=== PATIENT | male | born 1985 ===

== ENCOUNTER 2018-06-22 12:56 | Inpatient (IN) | payer MEDICAID, OTHER ==
--- NOTE | 2018-06-22 13:52 | C.PDOC ---
History Of Present Illness 32 y/o M c no PMHx p/w dyspnea x 2 weeks, worse over last 2 days. Reports associated chest tightness and a pleuritic pain in the L lower back. Denies fever, chills, nausea, vomiting, hemoptysis, injury/trauma, recent surgery or travel, leg swelling. Time Seen by Provider: 06/22/18 13:36 Chief Complaint (Nursing): Shortness Of Breath Past Medical History Vital Signs: Last Vital Signs Temp 97.9 F 06/22/18 13:12 Pulse 130 H 06/22/18 13:12 Resp 20 06/22/18 13:12 BP 149/96 H 06/22/18 13:12 Pulse Ox 95 06/22/18 13:12 Family History: States: No Known Family Hx - Social History Hx Alcohol Use: No Hx Substance Use: No Review Of Systems Except As Marked, All Systems Reviewed And Found Negative. Constitutional: Negative for: Fever Gastrointestinal: Negative for: Vomiting Physical Exam - Physical Exam Additional Physical Exam Comments: Constitutional: No acute distress. Head: Normocephalic. Atraumatic. Eyes: PERRL. ENT: Moist mucous membranes. Neck: Supple. Cardiovascular: Tachycardic rate. Radial pulse 2+ bilaterally. Chest: No tenderness. Respiratory: Hypoxic to 93%. Tachypneic. GI: Soft. Nontender. Nondistended. Back: No CVA tenderness. Musculoskeletal: No tenderness or swelling of extremities. Skin: No rash. Neurologic: Alert, no focal deficit. ED Course And Treatment - Laboratory Results Result Diagrams: 06/22/18 14:23 06/22/18 14:23 O2 Sat by Pulse Oximetry: 95 Critical Care Time - Critical Care Note Total Time (in mins): 45 Documented critical care: time excludes all time spent performing seperately billable procedures. Medical Decision Making Medical Decision Making: EKG Sinus rhythm, 126 bpm, no ST elevations. FINDINGS: PULMONARY ARTERIES: Extensive multifocal pulmonary emboli are identified beginning at the main left and right pulmonary arteries extending into every lobe with near occlusive thro mbosis at the secondary branches of the main right and left pulmonary arteries and lesser volumes in the bilateral lower lobe and left upper lobe pulmonary arteries. The right upper lobe pulmonary arteries appear rather severely affected. No embolus within the main pulmonary artery. The main right pulmonary artery measures 3.2 cm greatest transverse caliber, mildly dilated. In the heart, the right lateral ventricle appears dilated with straightening of the interventricular septum, suspicious for right ventricular strain. AORTA: No acute findings. No thoracic aortic aneurysm. No aortic atherosclerotic calcification or mural plaque present. LUNGS: The right lung is unremarkable. No right pleural findings. Trace of pleural effusion with limited airspace disease at the left base potentially related to compressive atelectasis. HEART: Unremarkable. No cardiomegaly. No significant pericardial effusion. LYMPH NODES: No lymphadenopathy. BONES, CHEST WALL: Unremarkable. No fracture or destructive lesion OTHER FINDINGS: Unremarkable. IMPRESSION: Widespread multifocal pulmonary emboli with a left upper lobe least affected. The main pulmonary artery is mildly dilated with CT evidence of right ventricular strain. Please see discussion above. Mild left pleural effusion and compression atelectasis left lower lobe. Findings discussed with Dr. Shepherd with written down and read back verification 06/22/2018, 3:[address] Justice accepts patient to ICU, states will discuss with patient concerning more thrombolysis. Dr. Guerrier accepts patient to hospitalist service. Disposition Discussed With : Amalia Justice Doctor Will See Patient In The: Hospital - Disposition Disposition: HOSPITALIZED Disposition Time: 15:55 Condition: CRITICAL - Clinical Impression Clinical Impression: Pulmonary embolism, bilateral
[2018-06-22] MEDS ORDERED: Iodixanol 320 mg/ml 150 ml Bottle IV ONE (14:09)
[2018-06-22 14:30] LABS: BASO # 0.1 K/uL (0.0-0.2); BASO % 0.4 % (0.0-2.0); EOS % 0.2 % (0.0-4.0); LYMPH # 3.4 K/uL (1.0-4.3); LYMPH % 20.3 % (20.0-40.0); MEAN CELL VOLUME 85.7 fL (80.0-94.0); MEAN CORPUSCULAR HEMOGLOBIN 28.9 pg (27.0-31.0); MEAN CORPUSCULAR HGB CONC 33.7 g/dL (33.0-37.0); MEAN PLATELET VOLUME 8.8 fL (7.2-11.7); MONO # 1.3 K/uL (0.0-0.8); MONO % 7.6 % (0.0-10.0); NEUT # 12.1 K/uL (1.8-7.0); NEUT % 71.5 % (50.0-75.0); NRBC % 0.2 % (0.0-2.0); RBC 5.54 Mil/uL (4.40-5.90); RED CELL DISTRIBUTION WIDTH 12.6 % (11.5-14.5)
[2018-06-22 14:45] LABS: INR 1.2; PROTHROMBIN TIME 13.3 SECONDS (9.7-12.2)
[2018-06-22 14:48] LABS: ALB/GLOB RATIO 1.1 (1.0-2.1); ALBUMIN 4.6 g/dL (3.5-5.0); ALT/SGPT 11 U/L (21-72); AST/SGOT 19 U/L (17-59); BLOOD UREA NITROGEN 20 mg/dL (9-20); CALCIUM 9.5 mg/dl (8.6-10.4); GFR NON-AFRICAN AMERICAN > 60
[2018-06-22 15:00] LABS: B-TYPE NATRIURETIC PEPTIDE 4230 pg/mL (0-450)
--- NOTE | 2018-06-22 15:58 | CT ---
Date of service: 06/22/2018 PROCEDURE: CT Chest with contrast (Pulmonary Angiogram) HISTORY: dyspnea, tachycardia COMPARISON: None available. TECHNIQUE: Axial computed tomography images were obtained of the chest in the pulmonary arterial phase of enhancement. Coronal and sagittal reformatted images were created and reviewed. Intravenous contrast dose: Visipaque 320, 100 cc Radiation dose: Total exam DLP = 620.72 mGy-cm. This CT exam was performed using one or more of the following dose reduction techniques: Automated exposure control, adjustment of the mA and/or kV according to patient size, and/or use of iterative reconstruction technique. FINDINGS: PULMONARY ARTERIES: Extensive multifocal pulmonary emboli are identified beginning at the main left and right pulmonary arteries extending into every lobe with near occlusive thrombosis at the secondary branches of the main right and left pulmonary arteries and lesser volumes in the bilateral lower lobe and left upper lobe pulmonary arteries. The right upper lobe pulmonary arteries appear rather severely affected. No embolus within the main pulmonary artery. The main right pulmonary artery measures 3.2 cm greatest transverse caliber, mildly dilated. In the heart, the right lateral ventricle appears dilated with straightening of the interventricular septum, suspicious for right ventricular strain. AORTA: No acute findings. No thoracic aortic aneurysm. No aortic atherosclerotic calcification or mural plaque present. LUNGS: The right lung is unremarkable. No right pleural findings. Trace of pleural effusion with limited airspace disease at the left base potentially related to compressive atelectasis. HEART: Unremarkable. No cardiomegaly. No significant pericardial effusion. LYMPH NODES: No lymphadenopathy. BONES, CHEST WALL: Unremarkable. No fracture or destructive lesion OTHER FINDINGS: Unremarkable. IMPRESSION: Widespread multifocal pulmonary emboli with a left upper lobe least affected. The main pulmonary artery is mildly dilated with CT evidence of right ventricular strain. Please see discussion above. Mild left pleural effusion and compression atelectasis left lower lobe. Findings discussed with Dr. Shepherd with written down and read back verification 06/22/2018, 3:43 p.m..
[2018-06-22] MEDS: Heparin25000 units/250ml 1/2NS 25,000 UNITS/250 ML BAG IV PRN (16:00)
--- NOTE | 2018-06-22 17:21 | CP.PCM.HP ---
History of Present Illness - History of Present Illness History of Present Illness: This is a 32 year old male who reports having two weeks of progressively worsening shortness of breath, chest pain, and palpitations. He reports that he had been tolerating this until about 2 days ago when it became considerably worse and now could no longer bear it any longer and came into the hospital. To make a long story short he had a CTA showing extensive multifocal pulmonary embolism in both left and right in every lobe. The right upper lobe arteries appear severely affected. The CTA also reported that the right ventricle appears very dilated and suspicious for right ventricular strain. There are borderline elevated troponins and the 12 lead shows sinus tachycardia in the 130s with On vital signs he was sinus tachycardia in the 120s to 130. BP was in the 130s Patient denied any recent travel, denied surgeries to the lower extremity, denied smoking, he walks alot and is not sedentary he says He also denies any family history of blood clotting disorders + He reported he thinks he injured his right knee about 1 month ago but did not have pain for more than one day, denied leg sweling + Headache off and on Denies abominal pain, denies bowel movment problems, denies urinary problems Allergies: NKDA Surgeries: Left shoulder surgery in childhood Medications: None Past Medical History: He reports none Social: He denies smoking, denies drugs, denies alcohol. Family History: Dad has HTN. Mother present at bedside and says she is well. Present on Admission - Present on Admission Any Indicators Present on Admission: Yes History of DVT/PE: Yes History of Uncontrolled Diabetes: No Urinary Catheter: No Decubitus Ulcer Present: No Review of Systems - Cardiovascular Cardiovascular: Chest Pain, Chest Pain at Rest, Dyspnea on Exertion, Rapid Heart Rate - Respiratory Respiratory: Cough - Gastrointestinal Gastrointestinal: absent: Abdominal Pain, Belching Past Patient History - Past Social History Smoking Status: Never Smoked - PSYCHIATRIC Hx Substance Use: No - SURGICAL HISTORY Hx Surgeries: No - ANESTHESIA Hx Anesthesia: No Meds Allergies/Adverse Reactions: Allergies Allergy/AdvReac Type Severity Reaction Status Date / Time No Known Allergies Allergy Unverified 06/22/18 13:15 Physical Exam - Constitutional Appears: In Acute Distress - Head Exam Head Exam: NORMAL INSPECTION - Eye Exam Eye Exam: EOMI, Normal appearance - ENT Exam ENT Exam: Mucous Membranes Moist - Respiratory Exam Respiratory Exam: Clear to Auscultation Bilateral, NORMAL BREATHING PATTERN - Cardiovascular Exam Cardiovascular Exam: Tachycardia. absent: Irregular Rhythm, Systolic Murmur - Neurological Exam Neurological exam: Alert, CN II-XII Intact - Skin Skin Exam: Dry, Normal Color, Warm Results - Vital Signs Recent Vital Signs: Last Vital Signs Temp 98.3 F 06/22/18 16:53 Pulse 131 H 06/22/18 16:53 Resp 26 H 06/22/18 16:53 BP 136/88 06/22/18 16:53 Pulse Ox 97 06/22/18 16:53 - Labs Result Diagrams: 06/22/18 14:23 06/22/18 14:23 Labs: Laboratory Results - last 24 hr 06/22/18 06/22/18 06/22/18 14:23 14:23 14:23 WBC 17.0 H RBC 5.54 Hgb 16.0 Hct 47.5 MCV 85.7 MCH 28.9 MCHC 33.7 RDW 12.6 Plt Count 370 MPV 8.8 Neut % (Auto) 71.5 Lymph % (Auto) 20.3 [place] % (Auto) 7.6 Eos % (Auto) 0.2 Baso % (Auto) 0.4 Neut # (Auto) 12.1 H Lymph # (Auto) 3.4 [place] # (Auto) 1.3 H Eos # (Auto) 0.0 Baso # (Auto) 0.1 PT 13.3 H INR 1.2 APTT 33 D-Dimer, Quantitative 3831 H Sodium 139 Potassium 3.8 Chloride 100 Carbon Dioxide 27 Anion Gap 16 BUN 20 Creatinine 1.1 Est GFR ( Amer) > 60 Est GFR (Non-Af Amer) > 60 Random Glucose 133 H Calcium 9.5 Total Bilirubin 0.6 AST 19 ALT 11 L Alkaline Phosphatase 122 Total Creatine Kinase 71 CK-MB (Mass) 2.80 Troponin I 0.3690 H* NT-Pro-B Natriuret Pep 4230 H Total Protein 8.7 H Albumin 4.6 Globulin 4.2 H Albumin/Globulin Ratio 1.1 - EKG Data EKG Interpreted by: Myself Rate: Tachycardia - Impressions Impression: The EKG shows tachycardia, sinus and has T wave inversions Assessment & Plan (1) Pulmonary embolism, bilateral Status: Acute Priority: High Comment: 06/22/2018: Patient will be moved to ICU, I spoke with ICU physician, Cardiology and also IR. The patient has recived a heparin bolus in the ER and also will be on a heparin ggt. The patient has borderline positive troponins noted and will have more tropnins checked. There will be an echo to look at heart strain. He will be on supplemental nasal cannula tonight as his saturation is 93% on room air. Per discussion with IR they asked he be given TPA tonight and then the plan is for an EKOS cathter lysis. at somepoint tommorow. Checking also lower extremity for DVT, however he denies long travel and any swelling. He may need a large anticoagulation work up if a reason is not readily found.
[2018-06-22] MEDS: Sodium Chloride 0.9% 1,000 ML IV SCH (18:41)
--- NOTE | 2018-06-22 18:58 | CP.PCM.CON ---
History of Present Illness - History of Present Illness History of Present Illness: Chief complaints: Shortness of breath HPI: 32-year-old male with no significant past medical history came to the emergency room today with symptoms of worsening shortness of breath. 2 and a weeks ago he was having, he started noticing some shortness of breath with minimal exertion. He was serving difficult time in walking, also climbing stairs was even more harder. Initially he thought related to some lung infections. He did not go to any exercise recently. 6 weeks ago he had some sprain of the left knee, but did not seek any medical attention, following that he started noticing some more pain. But he did not notice any swelling in the legs. Over the course of 2 weeks he started more short of breath. But 3 days he was not able to lie flat he was feeling some chest tightness, he was having some difficult time even sleep. Last night he could not sleep, he felt chest tightness, this morning he decided to come to the emergency room because of the symptoms not getting better. He did not have any passing out. No syncope. He did not have any chest pain. But the exertional dyspnea is significantly present In the past the patient did not have any travel. No history of major operations no other major history of injuries or head injuries noted in the past. No known drug allergy History of left shoulder surgery in the past Not any medications Non-smoker Nonalcoholic. Family history significant for hypertension Patient does not use any drugs Unemployed currently Review of system: Patient is having no headache, no visual symptoms, complaining of chest tightness and shortness of breath noted. No chest pain. Denies any leg swelling On examination: Vital signs noted. Sinus tachycardia noted. Blood pressure stable saturation is normal Chest good air entry regular heart sounds nontender abdomen no pedal edema Labs reviewed Patient labs showing evidence of elevated d-dimer Chest x-ray negative. PET patient had a CT scan of the chest showing evidence of major pulmonary embolism. Pulmonary embolism noted in the main pulmonary arteries. Bilaterally also noted. D-dimer was slightly elevated. EKG showing sinus tach Assessment and recommendation: 32-year-old male with no past medical history came to the emergency room with acute pulmonary embolism. Patient possibly has a submassive PE at this time. But hemodynamically he is stable. I discussed with the leather goods i assembler. Interventional radiologist. Possible intravenous catheter directed thrombolysis in the morning. I discussed with the patient regarding the intravenous IV thrombolysis, but the benefits and the risk was analyzed with the patient about systemic thrombolysis, as the patient is clinically stable at this time wait for thrombolysis through the catheter. Meanwhile we will continue the intravenous heparin drip. Close monitoring. If there is any slight increasing in the vital signs at this up saturation decompensation, patient definitely will need TPA. But his symptoms are therefore more than 2 weeks now. Underlying DVT cannot be ruled out. Underlying hypercoagulable state cannot be ruled out. We will closely monitor the patient. We will keep the patient n.p.o. and will follow the patient in the ICU Past Patient History - Past Social History Smoking Status: Never Smoked - MUSCULOSKELETAL/RHEUMATOLOGICAL Hx Falls: No - PSYCHIATRIC Hx Substance Use: No - SURGICAL HISTORY Hx Surgeries: No - ANESTHESIA Hx Anesthesia: No Meds Allergies/Adverse Reactions: Allergies Allergy/AdvReac Type Severity Reaction Status Date / Time No Known Allergies Allergy Unverified 06/22/18 13:15 - Medications Medications: Current Medications Aspirin (Aspirin Chewable) 81 mg PO DAILY [facility] Last Admin: 06/22/18 16:42 Dose: 81 mg Heparin Sodium/Sodium Chloride (Heparin 26209 Units/250ml 1/2 Normal Saline) 25,000 units in 250 mls @ 20.248 mls/hr IV .[id number] PRN; Protocol PRN Reason: ADJUST RATE PER PROTOCOL Last Admin: 06/22/18 16:00 Dose: 20.248 mls/hr Sodium Chloride (Sodium Chloride 0.9%) 1,000 mls @ 40 mls/hr IV .Q24H [facility] Last Admin: 06/22/18 18:41 Dose: 40 mls/hr Pantoprazole Sodium (Protonix Ec Tab) 20 mg PO DAILY [facility] Rosuvastatin Calcium (Crestor) 5 mg PO HS [facility] Results - Vital Signs Recent Vital Signs: Last Vital Signs Temp 98.3 F 06/22/18 16:53 Pulse 125 H 06/22/18 17:37 Resp 26 H 06/22/18 16:53 BP 136/88 06/22/18 16:53 Pulse Ox 97 06/22/18 16:53 - Labs Result Diagrams: 06/22/18 14:23 06/22/18 14:23 Labs: Laboratory Results - last 24 hr 06/22/18 06/22/18 06/22/18 14:23 14:23 14:23 WBC 17.0 H RBC 5.54 Hgb 16.0 Hct 47.5 MCV 85.7 MCH 28.9 MCHC 33.7 RDW 12.6 Plt Count 370 MPV 8.8 Neut % (Auto) 71.5 Lymph % (Auto) 20.3 [place] % (Auto) 7.6 Eos % (Auto) 0.2 Baso % (Auto) 0.4 Neut # (Auto) 12.1 H Lymph # (Auto) 3.4 [place] # (Auto) 1.3 H Eos # (Auto) 0.0 Baso # (Auto) 0.1 PT 13.3 H INR 1.2 APTT 33 D-Dimer, Quantitative 3831 H Sodium 139 Potassium 3.8 Chloride 100 Carbon Dioxide 27 Anion Gap 16 BUN 20 Creatinine 1.1 Est GFR ( Amer) > 60 Est GFR (Non-Af Amer) > 60 Random Glucose 133 H Calcium 9.5 Total Bilirubin 0.6 AST 19 ALT 11 L Alkaline Phosphatase 122 Total Creatine Kinase 71 CK-MB (Mass) 2.80 Troponin I 0.3690 H* NT-Pro-B Natriuret Pep 4230 H Total Protein 8.7 H Albumin 4.6 Globulin 4.2 H Albumin/Globulin Ratio 1.1
[2018-06-22 22:02] LABS: CK-MB 1.89 ng/mL (0.0-3.38); TROPONIN I 0.274 ng/mL (0.00-0.120)
[2018-06-23 04:39] LABS: BASO # 0.1 K/uL (0.0-0.2); BASO % 0.7 % (0.0-2.0); EOS % 0.3 % (0.0-4.0); HEMOGLOBIN 14.7 g/dL (12.0-18.0); LYMPH # 2.9 K/uL (1.0-4.3); LYMPH % 19.7 % (20.0-40.0); MEAN CELL VOLUME 84.8 fL (80.0-94.0); MEAN CORPUSCULAR HEMOGLOBIN 28.8 pg (27.0-31.0); MEAN PLATELET VOLUME 8.6 fL (7.2-11.7); MONO # 1.1 K/uL (0.0-0.8); MONO % 7.7 % (0.0-10.0); NEUT # 10.6 K/uL (1.8-7.0); NEUT % 71.6 % (50.0-75.0); RBC 5.11 Mil/uL (4.40-5.90); RED CELL DISTRIBUTION WIDTH 12.6 % (11.5-14.5); WHITE BLOOD COUNT 14.8 K/uL (4.8-10.8)
[2018-06-23 04:47] LABS: INR 1.2; PROTHROMBIN TIME 13.3 SECONDS (9.7-12.2)
[2018-06-23] MEDS: Heparin25000 units/250ml 1/2NS 25,000 UNITS/250 ML BAG IV PRN ×2 (05:21→19:28)
[2018-06-23 06:02] LABS: CK-MB 1.23 ng/mL (0.0-3.38); TROPONIN I 0.183 ng/mL (0.00-0.120)
[2018-06-23 06:03] LABS: ALB/GLOB RATIO 1.2 (1.0-2.1); ALT/SGPT 11 U/L (21-72); AST/SGOT 15 U/L (17-59); BLOOD UREA NITROGEN 20 mg/dL (9-20); CALCIUM 8.7 mg/dl (8.6-10.4); GFR NON-AFRICAN AMERICAN > 60
[2018-06-23 06:11] LABS: BARBITURATES, UR NEGATIVE (NEGATIVE); BENZODIAZEPINES, UR NEGATIVE (NEGATIVE); OPIATES, UR NEGATIVE (NEGATIVE); PHENCYCLIDINE, UR NEGATIVE (NEGATIVE)
[2018-06-23 09:46] LABS: HDL CHOLESTEROL 31 mg/dL (30-70)
[2018-06-23 09:56] LABS: LDL CHOLESTEROL 161 mg/dL (0-129)
[2018-06-23] MEDS: Pantoprazole 20 mg EC Tab PO SCH (10:06)
[2018-06-23] MEDS ORDERED: Heparin 2,000 ML IV ONE (12:33)
[2018-06-23] MEDS ORDERED: Iohexol 350mg/ml 100 ML ONE (12:33)
[2018-06-23] MEDS ORDERED: Iodixanol 320 MG/ML 200 ML BOTTLE IV ONE (12:44)
[2018-06-23] MEDS ORDERED: Lidocaine 2% MPF (5 ml) Inj ONE (12:53)
[2018-06-23] MEDS ORDERED: ALTEPLASE IV SCH (13:00)
[2018-06-23] MEDS ORDERED: SODIUM CHLORIDE 0.9% IV SCH (13:00)
--- NOTE | 2018-06-23 13:08 | RAD ---
Date of service: 06/23/2018 HISTORY: chest pain, shortness of breath COMPARISON: No prior. FINDINGS: LUNGS: No active pulmonary disease. PLEURA: No significant pleural effusion identified, no pneumothorax apparent. CARDIOVASCULAR: No aortic atherosclerotic calcification present. Normal cardiac size. No pulmonary vascular congestion. OSSEOUS STRUCTURES: No significant abnormalities. VISUALIZED UPPER ABDOMEN: Normal. OTHER FINDINGS: None. IMPRESSION: No active disease.
--- NOTE | 2018-06-23 13:11 | CP.PCM.PN ---
Subjective - Date & Time of Evaluation Date of Evaluation: 06/23/18 Time of Evaluation: 08:05 - Subjective Subjective: Dallas Castro DO, PGY-2: ICU progress note for Dr. Justice Patient was seen and examined at bedside. Patient denied any dyspnea, fever, or chills. Patient was undergoing ultrasound of the lower extremities at the time of my examination. Objective - Vital Signs/Intake and Output Vital Signs (last 24 hours): Temp Pulse Resp BP Pulse Ox 98.5 F 111 H 21 126/78 95 06/23/18 08:00 06/23/18 12:00 06/23/18 12:00 06/23/18 11:15 06/23/18 12:00 Intake and Output: 06/23/18 06/23/18 06:59 18:59 Intake Total 720.4 378 Output Total 600 Balance 120.4 378 - Medications Medications: Current Medications Aspirin (Aspirin Chewable) 81 mg PO DAILY [facility] Last Admin: 06/23/18 10:06 Dose: 81 mg Heparin Sodium/Sodium Chloride (Heparin 19706 Units/250ml 1/2 Normal Saline) 25,000 units in 250 mls @ 20.248 mls/hr IV .[id number] PRN; Protocol PRN Reason: ADJUST RATE PER PROTOCOL Last Admin: 06/23/18 05:21 Dose: 16 units/kg/hr, 17.999 mls/hr Sodium Chloride (Sodium Chloride 0.9%) 1,000 mls @ 40 mls/hr IV .Q24H [facility] Last Admin: 06/22/18 18:41 Dose: 40 mls/hr Alteplase, Recombinant 40 mg/ (Sodium Chloride) 1,000 mls @ 25 mls/hr IV Q24H [facility] Stop: 06/24/18 22:00 Alteplase, Recombinant 40 mg/ (Sodium Chloride) 1,000 mls @ 25 mls/hr IV Q24H [facility] Stop: 06/24/18 22:00 Influenza Virus Vaccine (Flucelvax Quad [id number] Syr) 60 mcg IM .ONCE ONE Stop: 06/26/18 11:06 Pantoprazole Sodium (Protonix Ec Tab) 20 mg PO DAILY [facility] Last Admin: 06/23/18 10:06 Dose: 20 mg Rosuvastatin Calcium (Crestor) 5 mg PO HS [facility] Last Admin: 06/22/18 22:23 Dose: 5 mg - Labs Labs: 06/23/18 04:33 06/23/18 04:33 PT 13.3 SECONDS (9.7-12.2) H 06/23/18 04:33 INR 1.2 06/23/18 04:33 APTT 73 SECONDS (21-34) H D 06/23/18 10:11 - Constitutional Appears: Well, Non-toxic - Head Exam Head Exam: ATRAUMATIC, NORMOCEPHALIC - Eye Exam Eye Exam: EOMI, Normal appearance - ENT Exam ENT Exam: Mucous Membranes Moist - Neck Exam Neck Exam: Normal Inspection - Respiratory Exam Respiratory Exam: Clear to Ausculation Bilateral, NORMAL BREATHING PATTERN. absent: Accessory Muscle Use - Cardiovascular Exam Cardiovascular Exam: Tachycardia, +S1, +S2 - GI/Abdominal Exam GI & Abdominal Exam: Soft, Normal Bowel Sounds - Extremities Exam Extremities Exam: Normal Inspection. absent: Calf Tenderness - Back Exam Back Exam: NORMAL INSPECTION - Neurological Exam Neurological Exam: Alert, Awake, Oriented x3 - Psychiatric Exam Psychiatric exam: Normal Affect, Normal Mood - Skin Skin Exam: Dry, Intact, Normal Color, Warm Assessment and Plan - Assessment and Plan (Free Text) Assessment: 32 year old male with no significant past medical history who presented with 2 weeks of progressively worsening dyspnea and a few days of pleuritic chest pain that was found to have widespread multifocal pulmonary emboli with a left upper lobe least affected. The main pulmonary artery is mildly dilated with CT evidence of right ventricular strain. Mild left pleural effusion and compression atelectasis left lower lobe. He was started on systemic heparin and low dose Statin. Interventional radiology was consulted and performed placement of bilateral EKOS catheter for bilateral PE. Patient was also found to have a right femoral and popliteal DVT on US. 1) Pulmonary embolus with right heart strain and right femoral and politeal DVT - Patient to go to IR suite for catheter directed thrombolysis - Systemic Heparin ggt - Rosuvastatin 5 mg HS - Alteplase ggt per IR - Pending hypercoagulable work-up ordered as well Echocardiogram 2) Dyslipidemia - Triglycerides 256 - Cholesterol 213 - LDL 161 - Continue with 5 mg Rosuvastatin 3) GI prophylaxis - Protonix 20 mg Case reviewed and discussed with attending physician, Dr. Justice
[2018-06-23] MEDS ORDERED: SODIUM CHLORIDE 0.9% IV ONE (13:20)
[2018-06-23] MEDS ORDERED: ALTEPLASE IV ONE (13:20)
--- NOTE | 2018-06-23 13:20 | PCM.SURG1 ---
Surgeon's Initial Post Op Note - Surgeon's Notes Surgeon: Jonn Davila MD [employer] Supervisor: NONE Type of Anesthesia: Local Pre-Operative Diagnosis: Pulmonary embolism Operative Findings: Pulmonary angiogram showed filling defects right and left lung consistent with embolisms; paucity of peripheral blood vessels. Post-Operative Diagnosis: Pulmonary embolism Operation Performed: Pulmonary artery angiogram, placement of bilateral ekos catheter. Specimen/Specimens Removed: NONE Estimated Blood Loss: EBL {In ML}: 2 Blood Products Given: N/A Drains Used: No Drains Post-Op Condition: Poor Date of Surgery/Procedure: 06/23/18 Time of Surgery/Procedure: 13:15
[2018-06-23] MEDS ORDERED: Sodium Chloride 0.9% 1,000 ML IV SCH (13:30)
[2018-06-23] MEDS: Sodium Chloride 0.9% 500 ML IV SCH ×2 (14:00→22:38)
--- NOTE | 2018-06-23 14:20 | CARD ---
APPROVED REPORT Date of service: 06/22/2018 EKG Measurement Heart [id number] <Conclusion> Sinus tachycardia Inferior infarct, age undetermined Abnormal ECG
--- NOTE | 2018-06-23 15:30 | CP.PCM.PN ---
Subjective - Date & Time of Evaluation Date of Evaluation: 06/23/18 Time of Evaluation: 15:28 - Subjective Subjective: doing well post ekos catheter device lying in bed no sob no cp Objective - Vital Signs/Intake and Output Vital Signs (last 24 hours): Temp Pulse Resp BP Pulse Ox 98 F 109 H 22 132/73 96 06/23/18 14:30 06/23/18 14:30 06/23/18 14:30 06/23/18 14:30 06/23/18 14:15 Intake and Output: 06/23/18 06/23/18 06:59 18:59 Intake Total 720.4 378 Output Total 600 Balance 120.4 378 - Medications Medications: Current Medications Aspirin (Aspirin Chewable) 81 mg PO DAILY [facility] Last Admin: 06/23/18 10:06 Dose: 81 mg Heparin Sodium/Sodium Chloride (Heparin 83843 Units/250ml 1/2 Normal Saline) 25,000 units in 250 mls @ 20.248 mls/hr IV .[id number] PRN; Protocol PRN Reason: ADJUST RATE PER PROTOCOL Last Admin: 06/23/18 05:21 Dose: 16 units/kg/hr, 17.999 mls/hr Sodium Chloride (Sodium Chloride 0.9%) 1,000 mls @ 40 mls/hr IV .Q24H [facility] Last Admin: 06/22/18 18:41 Dose: 40 mls/hr Alteplase, Recombinant 40 mg/ (Sodium Chloride) 1,000 mls @ 25 mls/hr IV Q24H [facility] Stop: 06/24/18 22:00 Alteplase, Recombinant 40 mg/ (Sodium Chloride) 1,000 mls @ 25 mls/hr IV Q24H [facility] Stop: 06/24/18 22:00 Sodium Chloride (Sodium Chloride 0.9%) 1,000 mls @ 35 mls/hr IV .Q24H [facility] Influenza Virus Vaccine (Flucelvax Quad [id number] Syr) 60 mcg IM .ONCE ONE Stop: 06/26/18 11:06 Pantoprazole Sodium (Protonix Ec Tab) 20 mg PO DAILY [facility] Last Admin: 06/23/18 10:06 Dose: 20 mg Rosuvastatin Calcium (Crestor) 5 mg PO HS [facility] Last Admin: 06/22/18 22:23 Dose: 5 mg - Labs Labs: 06/23/18 04:33 06/23/18 04:33 PT 13.3 SECONDS (9.7-12.2) H 06/23/18 04:33 INR 1.2 06/23/18 04:33 APTT 73 SECONDS (21-34) H D 06/23/18 10:11 - Constitutional Appears: Well, No Acute Distress - Head Exam Head Exam: ATRAUMATIC, NORMAL INSPECTION, NORMOCEPHALIC - Eye Exam Eye Exam: Normal appearance - ENT Exam ENT Exam: Mucous Membranes Dry - Respiratory Exam Respiratory Exam: Clear to Ausculation Bilateral. absent: Accessory Muscle Use, Rales, Rhonchi, Wheezes, NORMAL BREATHING PATTERN - Cardiovascular Exam Cardiovascular Exam: Tachycardia, +S1, +S2 - Extremities Exam Extremities Exam: Pedal Edema - Neurological Exam Neurological Exam: Alert, Awake, Oriented x3 - Skin Skin Exam: Normal Color Assessment and Plan - Assessment and Plan (Free Text) Assessment: 1. PE extensive - getting tpa and ekos device to break down clot 2. DVT- post "trauma" he had injury after going to [employer] and stayed bed bound a day or two- leading to formation of dvt 3. Elevated troponin due to right heart strain continue monitoring in ICU
[2018-06-23] MEDS: Sodium Chloride 0.9% 1,000 ML IV SCH ×2 (18:30→22:39)
[2018-06-23 19:01] LABS: URINE BILIRUBIN SMALL (NEGATIVE); URINE CLARITY CLEAR (Clear); URINE COLOR YELLOW (YELLOW); URINE GLUCOSE (UA) NEGATIVE (Normal)
[2018-06-23 19:02] LABS: URINE BLOOD SMALL (NEGATIVE); URINE LEUKOCYTE ESTERASE NEGATIVE Leu/uL (Negative); URINE PROTEIN TRACE mg/dL (NEGATIVE); URINE UROBILINOGEN 0.2 mg/dL (0.2-1.0)
[2018-06-23] MEDS ORDERED: Sodium Chloride 0.9% 500 ML IV SCH (20:30)
[2018-06-23] MEDS ORDERED: DiphenhydrAMINE 50 mg/ml Inj IVP STA (22:43)
[2018-06-24 05:37] LABS: BASO # 0.1 K/uL (0.0-0.2); BASO % 0.6 % (0.0-2.0); EOS % 0.2 % (0.0-4.0); HEMOGLOBIN 13.6 g/dL (12.0-18.0); LYMPH # 2.1 K/uL (1.0-4.3); LYMPH % 18.2 % (20.0-40.0); MEAN CELL VOLUME 84.8 fL (80.0-94.0); MEAN CORPUSCULAR HEMOGLOBIN 29.2 pg (27.0-31.0); MEAN CORPUSCULAR HGB CONC 34.4 g/dL (33.0-37.0); MEAN PLATELET VOLUME 8.7 fL (7.2-11.7); MONO # 0.9 K/uL (0.0-0.8); MONO % 7.8 % (0.0-10.0); NEUT # 8.4 K/uL (1.8-7.0); NEUT % 73.2 % (50.0-75.0); RBC 4.66 Mil/uL (4.40-5.90); RED CELL DISTRIBUTION WIDTH 12.7 % (11.5-14.5); WHITE BLOOD COUNT 11.5 K/uL (4.8-10.8)
[2018-06-24 05:45] LABS: INR 1.4
[2018-06-24 05:52] LABS: ALB/GLOB RATIO 1.1 (1.0-2.1); ALBUMIN 3.5 g/dL (3.5-5.0); ALT/SGPT 12 U/L (21-72); AST/SGOT 15 U/L (17-59); BLOOD UREA NITROGEN 18 mg/dL (9-20); CALCIUM 8.1 mg/dl (8.6-10.4); GFR NON-AFRICAN AMERICAN > 60
[2018-06-24] MEDS: Sodium Chloride 0.9% 1,000 ML IV SCH (08:29)
[2018-06-24] MEDS: Heparin25000 units/250ml 1/2NS 25,000 UNITS/250 ML BAG IV PRN ×3 (08:30→23:40)
--- NOTE | 2018-06-24 09:01 | VASCLAB ---
Date of service: 06/23/2018 PROCEDURE: Lower Extremity Venous Duplex Exam. HISTORY: dvt PRIORS: None. TECHNIQUE: Bilateral common femoral, femoral, popliteal and posterior tibial, peroneal and great saphenous veins were evaluated. Flow was assessed with color Doppler, compressibility, assessment of phasic flow and augmentation response. Report prepared by SANDRO Whyte, RVT FINDINGS: RIGHT: 1. Common Femoral Vein: 1.1. Compressibility - Fully compressible: Thrombus - None : Flow - Phasic: Augmentation -Normal: Reflux - None. 2. Femoral Vein: 2.1. Compressibility - Partial: Thrombus - Acute : Flow - Absent : Augmentation - None: Reflux - None. 3. Popliteal Vein: 3.1. Compressibility - Partial: Thrombus - Acute : Flow - Absent : Augmentation - None: Reflux - None. 4. Posterior Tibial Vein: 4.1. Compressibility - Fully compressible: Thrombus - None: Flow - Phasic: Augmentation -Normal: Reflux - None. 5. Peroneal Vein: 5.1. Compressibility - Fully compressible: Thrombus - None: Flow - Phasic: Augmentation -Normal: Reflux - None. 6. Great Saphenous Vein: 6.1. Compressibility - Fully compressible: Thrombus - None: Flow - Phasic: Augmentation - Normal: Reflux - None. LEFT: 1. Common Femoral Vein: 1.1. Compressibility - Fully compressible: Thrombus - None: Flow - Phasic: Augmentation -Normal: Reflux - None. 2. Femoral Vein: 2.1. Compressibility - Fully compressible: Thrombus - None: Flow - Phasic: Augmentation -Normal: Reflux - None. 3. Popliteal Vein: 3.1. Compressibility - Fully compressible: Thrombus - None : Flow - Phasic: Augmentation -Normal: Reflux - None. 4. Posterior Tibial Vein: 4.1. Compressibility - Fully compressible: Thrombus - None: Flow - Phasic: Augmentation -Normal: Reflux - None. 5. Peroneal Vein: 5.1. Compressibility - Fully compressible: Thrombus - None: Flow - Phasic: Augmentation -Normal: Reflux - None. 6. Great Saphenous Vein: 6.1. Compressibility - Fully compressible: Thrombus - None: Flow - Phasic: Augmentation - Normal: Reflux - None. OTHER FINDINGS: BENJAMIN Tan notified about the findings. Impression Right: Acute thrombosis of the right femoral and popliteal veins with severe reduction of the venous return. Left: No evidence of deep or superficial vein thrombosis of the left lower extremity. Normal valve function noted of the left side.
[2018-06-24] MEDS: Pantoprazole 20 mg EC Tab PO SCH ×2 (09:12→09:25)
[2018-06-24] MEDS ORDERED: Iohexol 350mg/ml 100 ML ONE (10:18)
--- NOTE | 2018-06-24 10:37 | PCM.SURG1 ---
Surgeon's Initial Post Op Note - Surgeon's Notes Surgeon: Jonn Davila MD Spider Assembler: NONE Type of Anesthesia: None Pre-Operative Diagnosis: Pulmonary embolism Operative Findings: Post catheter directed thrombolysis showed improved flow right lung and left lung. There is persistent thrombus within lefg segmental branch and distal right main PA. Post-Operative Diagnosis: Pulmonary embolism Operation Performed: Pulmonary angiogram Specimen/Specimens Removed: none Estimated Blood Loss: EBL {In ML}: 0 Blood Products Given: N/A Drains Used: No Drains Post-Op Condition: Fair Date of Surgery/Procedure: 06/24/18 Time of Surgery/Procedure: 10:35
--- NOTE | 2018-06-24 16:47 | CP.PCM.PN ---
Subjective - Date & Time of Evaluation Date of Evaluation: 06/24/18 Time of Evaluation: 16:44 - Subjective Subjective: no cp no sob no palpitations Objective - Vital Signs/Intake and Output Vital Signs (last 24 hours): Temp Pulse Resp BP Pulse Ox 98.1 F 105 H 23 149/94 H 98 06/24/18 12:25 06/24/18 16:13 06/24/18 16:13 06/24/18 16:13 06/24/18 16:13 Intake and Output: 06/24/18 06/24/18 06:59 18:59 Intake Total 3059 1320 Output Total 1110 55 Balance 1949 1265 - Medications Medications: Current Medications Aspirin (Aspirin Chewable) 81 mg PO DAILY [facility] Last Admin: 06/24/18 09:25 Dose: 81 mg Heparin Sodium/Sodium Chloride (Heparin 70889 Units/250ml 1/2 Normal Saline) 25,000 units in 250 mls @ 17.999 mls/hr IV .[id number] PRN; Protocol PRN Reason: ADJUST RATE PER PROTOCOL Last Admin: 06/24/18 12:03 Dose: 16 units/kg/hr, 17.999 mls/hr Influenza Virus Vaccine (Flucelvax Quad [id number] Syr) 60 mcg IM .ONCE ONE Stop: 06/26/18 11:06 Pantoprazole Sodium (Protonix Ec Tab) 20 mg PO DAILY [facility] Last Admin: 06/24/18 09:25 Dose: 20 mg Rosuvastatin Calcium (Crestor) 5 mg PO HS [facility] Last Admin: 06/23/18 22:37 Dose: 5 mg - Labs Labs: 06/24/18 05:34 06/24/18 05:34 PT 15.0 SECONDS (9.7-12.2) H 06/24/18 05:34 INR 1.4 06/24/18 05:34 APTT 45 SECONDS (21-34) H D 06/24/18 05:34 - Constitutional Appears: Well, No Acute Distress - Head Exam Head Exam: ATRAUMATIC, NORMAL INSPECTION, NORMOCEPHALIC - ENT Exam ENT Exam: Mucous Membranes Moist - Respiratory Exam Respiratory Exam: Clear to Ausculation Bilateral, NORMAL BREATHING PATTERN. absent: Rales, Rhonchi, Wheezes - Cardiovascular Exam Cardiovascular Exam: Tachycardia, +S1, +S2 - GI/Abdominal Exam GI & Abdominal Exam: Soft, Normal Bowel Sounds. absent: Tenderness - Neurological Exam Neurological Exam: Alert, Awake, Oriented x3 - Psychiatric Exam Psychiatric exam: Normal Affect Assessment and Plan - Assessment and Plan (Free Text) Assessment: 1. PE extensive - getting tpa and ekos device to break down clot 2. DVT- post "trauma" he had injury after going to [facility]. and stayed bed bound a day or two- leading to formation of dvt 3. Elevated troponin due to right heart strain continue monitoring in ICU
--- NOTE | 2018-06-24 17:39 | CP.PCM.PN ---
<Dallas Castro - Last Filed: 06/24/18 18:20> Subjective - Date & Time of Evaluation Date of Evaluation: 06/24/18 Time of Evaluation: 07:40 - Subjective Subjective: Dallas Castro DO, PGY-2: ICU Progress Note for Dr. Lowry Patient was seen and examined at bedside. Patient reports feeling fine overnight. He denies chest pain, dyspnea, fever, or chills. No adverse events were noted overnight. Objective - Vital Signs/Intake and Output Vital Signs (last 24 hours): Temp Pulse Resp BP Pulse Ox 98.1 F 105 H 25 H 146/92 H 97 06/24/18 12:25 06/24/18 16:43 06/24/18 16:43 06/24/18 16:43 06/24/18 16:43 Intake and Output: 06/24/18 06/24/18 06:59 18:59 Intake Total 3059 1338 Output Total 1110 55 Balance 1949 1283 - Medications Medications: Current Medications Aspirin (Aspirin Chewable) 81 mg PO DAILY [facility] Last Admin: 06/24/18 09:25 Dose: 81 mg Heparin Sodium/Sodium Chloride (Heparin 49824 Units/250ml 1/2 Normal Saline) 25,000 units in 250 mls @ 17.999 mls/hr IV .[id number] PRN; Protocol PRN Reason: ADJUST RATE PER PROTOCOL Last Admin: 06/24/18 12:03 Dose: 16 units/kg/hr, 17.999 mls/hr Influenza Virus Vaccine (Flucelvax Quad 0616-9774 Syr) 60 mcg IM .ONCE ONE Stop: 06/26/18 11:06 Pantoprazole Sodium (Protonix Ec Tab) 20 mg PO DAILY [facility] Last Admin: 06/24/18 09:25 Dose: 20 mg Rosuvastatin Calcium (Crestor) 5 mg PO HS [facility] Last Admin: 06/23/18 22:37 Dose: 5 mg - Labs Labs: 06/24/18 05:34 06/24/18 05:34 PT 15.0 SECONDS (9.7-12.2) H 06/24/18 05:34 INR 1.4 06/24/18 05:34 APTT 45 SECONDS (21-34) H D 06/24/18 05:34 - Constitutional Appears: Well, Non-toxic - Head Exam Head Exam: ATRAUMATIC, NORMOCEPHALIC - Eye Exam Eye Exam: EOMI, Normal appearance - ENT Exam ENT Exam: Mucous Membranes Moist, Normal Oropharynx - Neck Exam Neck Exam: Normal Inspection - Respiratory Exam Respiratory Exam: Clear to Ausculation Bilateral, NORMAL BREATHING PATTERN. absent: Accessory Muscle Use - Cardiovascular Exam Cardiovascular Exam: RRR, +S1, +S2 - GI/Abdominal Exam GI & Abdominal Exam: Soft, Normal Bowel Sounds. absent: Guarding, Rebound - Extremities Exam Extremities Exam: Normal Inspection. absent: Calf Tenderness - Neurological Exam Neurological Exam: Alert, Awake, Oriented x3 - Psychiatric Exam Psychiatric exam: Normal Affect, Normal Mood - Skin Skin Exam: Dry, Intact, Normal Color, Warm Assessment and Plan - Assessment and Plan (Free Text) Assessment: 32 year old male with no significant past medical history who presented with 2 weeks of progressively worsening dyspnea and a few days of pleuritic chest pain that was found to have widespread multifocal pulmonary emboli with a left upper lobe least affected. The main pulmonary artery is mildly dilated with CT evidence of right ventricular strain. Mild left pleural effusion and compression atelectasis left lower lobe. He was started on systemic heparin and low dose Statin. Interventional radiology was consulted and started systemic heparin performed EKOS catheter-directerd thrombolysis for bilateral PE. Patient was also found to have a right femoral and popliteal DVT on US. Echocardiogram is pending. 1) Pulmonary embolus with right heart strain and right femoral and politeal DVT - Patient to go to IR suite for catheter directed thrombolysis - Systemic Heparin ggt - Rosuvastatin 5 mg HS - Alteplase ggt per IR - Pending hypercoagulable work-up ordered as well Echocardiogram 2) Dyslipidemia - Triglycerides 256 - Cholesterol 213 - LDL 161 - 5 mg Rosuvastatin 3) GI prophylaxis - Protonix 20 mg Case reviewed and discussed with attending physician, Dr. Lowry <Vincent Lowry - Last Filed: 06/24/18 18:37> Objective - Vital Signs/Intake and Output Vital Signs (last 24 hours): Temp Pulse Resp BP Pulse Ox 98.1 F 103 H 24 154/81 H 95 06/24/18 12:25 06/24/18 18:13 06/24/18 18:13 06/24/18 18:13 06/24/18 18:13 Intake and Output: 06/24/18 06/24/18 06:59 18:59 Intake Total 3059 1338 Output Total 1110 55 Balance 1949 1283 - Medications Medications: Current Medications Aspirin (Aspirin Chewable) 81 mg PO DAILY [facility] Last Admin: 06/24/18 09:25 Dose: 81 mg Heparin Sodium/Sodium Chloride (Heparin 13738 Units/250ml 1/2 Normal Saline) 25,000 units in 250 mls @ 17.999 mls/hr IV .[id number] PRN; Protocol PRN Reason: ADJUST RATE PER PROTOCOL Last Admin: 06/24/18 12:03 Dose: 16 units/kg/hr, 17.999 mls/hr Influenza Virus Vaccine (Flucelvax Quad [id number] Syr) 60 mcg IM .ONCE ONE Stop: 06/26/18 11:06 Pantoprazole Sodium (Protonix Ec Tab) 20 mg PO DAILY [facility] Last Admin: 06/24/18 09:25 Dose: 20 mg Rosuvastatin Calcium (Crestor) 5 mg PO HS [facility] Last Admin: 06/23/18 22:37 Dose: 5 mg - Labs Labs: 06/24/18 05:34 06/24/18 05:34 PT 15.0 SECONDS (9.7-12.2) H 06/24/18 05:34 INR 1.4 06/24/18 05:34 APTT 45 SECONDS (21-34) H D 06/24/18 05:34 Attending/Attestation - Attestation I have personally seen and examined this patient.: Yes I have fully participated in the care of the patient.: Yes I have reviewed all pertinent clinical information, including history, physical exam and plan: Yes Notes (Text): 06/24/18 18:36 Patient seen and examined in the intensive care unit. Post catheter directed thrombolysis showed improved flow right lung and left lung. There is persistent thrombus within lefg segmental branch and distal right main PA. Continue heparin Follow-up echocardiogram
--- NOTE | 2018-06-24 22:54 | CARD ---
APPROVED REPORT Date of service: 06/24/2018 EXAM: Two-dimensional and M-mode echocardiogram with Doppler and color Doppler. Other Information Quality : TDSRhythm : INDICATION Dyspnea Pulmonary Embolism Chest Pain 2D DIMENSIONS IVSd1.3 (0.7-1.1cm)LVDd3.8 (3.9-5.9cm) PWd1.2 (0.7-1.1cm)LA Ntbjvc96 (18-58mL) LVDs2.0 (2.5-4.0cm)FS (%) 46.1 % LVEF (%)70.0 (>50%)LVEF (Dyer's)65.84 % IVC0.00 cm M-Mode DIMENSIONS Left Atrium (MM)3.96 (2.5-4.0cm)IVSd1.67 (0.7-1.1cm) Aortic Root3.20 (2.2-3.7cm)LVDd4.62 (4.0-5.6cm) Aortic Cusp Exc.2.36 (1.5-2.0cm)PWd1.49 (0.7-1.1cm) FS (%) 53 %LVDs2.19 (2.0-3.8cm) LVEF (%)70 (>50%) Mitral Valve MV E Lfltmnlr17.2cm/sMV A Iogrmwub47.9cm/sE/A ratio0.8 TDI Lateral E' Peak V11.26cm/sMedial E' Peak V7.51cm/sE/Lateral E'4.1 E/Medial E'6.2 Tricuspid Valve TR Peak Ejpxenpj181um/sTR Peak Gr.93thNeOUBV11llRg LEFT VENTRICLE The left ventricle is normal size. There is mild to moderate concentric left ventricular hypertrophy. Left ventricle systolic function is normal. The Ejection Fraction is 65-70%. There is normal LV segmental wall motion. Tissue Doppler imaging reveals abnormal left ventricular diastolic dysfunction. RIGHT VENTRICLE The right ventricle is normal size. There is normal right ventricular wall thickness. The right ventricular systolic function is normal. ATRIA The left atrium size is normal. The right atrium size is normal. The interatrial septum is intact with no evidence for an atrial septal defect. AORTIC VALVE The aortic valve is normal in structure. No aortic regurgitation is present. There is no aortic valvular stenosis. There is no aortic valvular vegetation. MITRAL VALVE The mitral valve is normal in structure. There is no evidence of mitral valve prolapse. There is no mitral valve stenosis. There is no mitral valve regurgitation noted. TRICUSPID VALVE The tricuspid valve is normal in structure. There is mild tricuspid regurgitation. Right ventricular systolic pressure is estimated at 30-40 mmHg. There is mild pulmonary hypertension. PULMONIC VALVE The pulmonic valve is not well visualized. There is trace pulmonic valvular regurgitation. GREAT VESSELS The aortic root is normal in size. PERICARDIAL EFFUSION There is no significant pericardial effusion. <Conclusion> Left ventricle systolic function is normal. The Ejection Fraction is 65-70%. Diastolic dysfunction. No aortic regurgitation is present. There is no mitral valve regurgitation noted. There is mild tricuspid regurgitation. There is mild pulmonary hypertension. There is trace pulmonic valvular regurgitation.
[2018-06-25 06:12] LABS: BASO % 0.2 % (0.0-2.0); EOS % 0.3 % (0.0-4.0); HEMOGLOBIN 13.7 g/dL (12.0-18.0); LYMPH % 17.8 % (20.0-40.0); MEAN CORPUSCULAR HEMOGLOBIN 28.6 pg (27.0-31.0); MEAN PLATELET VOLUME 8.9 fL (7.2-11.7); MONO % 8.8 % (0.0-10.0); NEUT # 8.1 K/uL (1.8-7.0); NEUT % 72.9 % (50.0-75.0); NRBC % 0.1 % (0.0-2.0); RBC 4.79 Mil/uL (4.40-5.90); RED CELL DISTRIBUTION WIDTH 12.1 % (11.5-14.5); WHITE BLOOD COUNT 11.1 K/uL (4.8-10.8)
[2018-06-25 06:31] LABS: ALB/GLOB RATIO 1.1 (1.0-2.1); ALBUMIN 3.7 g/dL (3.5-5.0); ALT/SGPT 18 U/L (21-72); AST/SGOT 17 U/L (17-59); BLOOD UREA NITROGEN 15 mg/dL (9-20); CALCIUM 8.2 mg/dl (8.6-10.4); GFR NON-AFRICAN AMERICAN > 60
[2018-06-25] MEDS: Pantoprazole 20 mg EC Tab PO SCH (09:12)
--- NOTE | 2018-06-25 17:11 | CP.PCM.PN ---
Subjective - Date & Time of Evaluation Date of Evaluation: 06/25/18 Time of Evaluation: 17:09 - Subjective Subjective: no cp no sob had difficulty urinating last night peres reinserted Objective - Vital Signs/Intake and Output Vital Signs (last 24 hours): Temp Pulse Resp BP Pulse Ox 98.1 F 102 H 19 138/80 97 06/25/18 04:00 06/25/18 16:00 06/25/18 16:00 06/25/18 16:01 06/25/18 16:00 Intake and Output: 06/25/18 06/25/18 06:59 18:59 Intake Total 986 362 Output Total 500 200 Balance 486 162 - Medications Medications: Current Medications Apixaban (Eliquis) 10 mg PO BID [facility] Stop: 07/01/18 18:01 Last Admin: 06/25/18 11:58 Dose: 10 mg Aspirin (Aspirin Chewable) 81 mg PO DAILY [facility] Last Admin: 06/25/18 09:12 Dose: 81 mg Influenza Virus Vaccine (Flucelvax Quad [id number] Syr) 60 mcg IM .ONCE ONE Stop: 06/26/18 11:06 Pantoprazole Sodium (Protonix Ec Tab) 20 mg PO DAILY [facility] Last Admin: 06/25/18 09:12 Dose: 20 mg Rosuvastatin Calcium (Crestor) 5 mg PO [facility] Last Admin: 06/24/18 21:26 Dose: 5 mg - Labs Labs: 06/25/18 06:00 06/25/18 06:00 PT 15.0 SECONDS (9.7-12.2) H 06/24/18 05:34 INR 1.4 06/24/18 05:34 APTT 51 SECONDS (21-34) H D 06/25/18 06:00 - Constitutional Appears: Well, Non-toxic, No Acute Distress - Head Exam Head Exam: ATRAUMATIC, NORMAL INSPECTION, NORMOCEPHALIC - ENT Exam ENT Exam: Mucous Membranes Moist - Respiratory Exam Respiratory Exam: Clear to Ausculation Bilateral, NORMAL BREATHING PATTERN. absent: Rales, Rhonchi, Wheezes - Cardiovascular Exam Cardiovascular Exam: REGULAR RHYTHM, +S1, +S2 - Neurological Exam Neurological Exam: Alert, Awake, Oriented x3 Assessment and Plan - Assessment and Plan (Free Text) Assessment: 1. PE- s/p catheter and tpa - now on elequis 10mg bid x 7 days then 5mg bid 2. DVT- cont elequis 3. Urinary retention - bladder training 4. PT- OT
[2018-06-26 03:28] LABS: B2 GLYCOPROTEIN I AB(IGA) <9 SAU (<=20); B2 GLYCOPROTEIN I AB(IGG) <9 SGU (<=20); B2 GLYCOPROTEIN I AB(IGM) <9 SMU (<=20)
[2018-06-26 04:17] LABS: CARDIOLIPIN AB (IGA) <11 APL (<=11); CARDIOLIPIN AB (IGG) <14 GPL (<=14); CARDIOLIPIN AB (IGM) <12 MPL (<=12)
[2018-06-26 04:33] VITALS: RESP 20
[2018-06-26 05:12] LABS: PHOSPHATIDYLSERINE AB IGA <20 U/mL (<20); PHOSPHATIDYLSERINE AB IGG <10 U/mL (<10); PHOSPHATIDYLSERINE AB IGM <25 U/mL (<25)
[2018-06-26 06:28] LABS: BASO % 0.3 % (0.0-2.0); EOS # 0.1 K/uL (0.0-0.7); EOS % 0.4 % (0.0-4.0); HEMOGLOBIN 13.7 g/dL (12.0-18.0); LYMPH # 1.3 K/uL (1.0-4.3); LYMPH % 9.7 % (20.0-40.0); MEAN CELL VOLUME 84.1 fL (80.0-94.0); MEAN CORPUSCULAR HEMOGLOBIN 28.1 pg (27.0-31.0); MEAN CORPUSCULAR HGB CONC 33.5 g/dL (33.0-37.0); MEAN PLATELET VOLUME 8.7 fL (7.2-11.7); MONO # 1.1 K/uL (0.0-0.8); MONO % 8.4 % (0.0-10.0); NEUT # 10.8 K/uL (1.8-7.0); NEUT % 81.2 % (50.0-75.0); PLATELET COUNT 242 K/uL (130-400); RBC 4.87 Mil/uL (4.40-5.90); RED CELL DISTRIBUTION WIDTH 12.6 % (11.5-14.5); WHITE BLOOD COUNT 13.3 K/uL (4.8-10.8)
[2018-06-26 06:48] LABS: ALB/GLOB RATIO 1.2 (1.0-2.1); ALBUMIN 3.7 g/dL (3.5-5.0); ALT/SGPT 29 U/L (21-72); AST/SGOT 22 U/L (17-59); BLOOD UREA NITROGEN 14 mg/dL (9-20); CALCIUM 8.3 mg/dl (8.6-10.4); GFR NON-AFRICAN AMERICAN > 60
[2018-06-26 09:32] LABS: EOSINOPHIL 1 % (0-4); LYMPHOCYTE 10 % (20-40); MONOCYTE 7 % (0-10); NEUTROPHIL 80 % (50-75); REACTIVE LYMPHOCYTES 2 % (0-0); TOTAL CELLS COUNTED 100
[2018-06-26 09:33] LABS: LARGE PLATELETS PRESENT; PLATELET ESTIMATE NORMAL (NORMAL)
[2018-06-26] MEDS ORDERED: Influenza Vaccine 60 mcg/0.5 mL SYR (4YR UP) IM ONE (11:05)
[2018-06-26] MEDS: Pantoprazole 20 mg EC Tab PO SCH (11:18)
--- NOTE | 2018-06-26 13:54 | CP.PCM.PN ---
Subjective - Date & Time of Evaluation Date of Evaluation: 06/26/18 Time of Evaluation: 14:07 - Subjective Subjective: Viji Mccall PGY1 Progress Note for Dr. Dumas Patient was evaluated at bedside this morning. He reports feeling shortness of breath with activity (walking up stairs) for 2 weeks prior to ED visit. 2 days before ED visit, patient reports feeling extremely out of breath and slightly dizzy. He reports improvement in these symptoms now, with fatigue being his major complaint. He says he is able to tolerate physical therapy movements and training. He says he does not currently have primary care physician. He denies chest pain, palpitations, dizziness, nausea, vomiting, diarrhea, constipation, dysuria, pyuria, numbness, tingling, fever, or chills at this time. Objective - Vital Signs/Intake and Output Vital Signs (last 24 hours): Temp Pulse Resp BP Pulse Ox 99.3 F 103 H 20 121/69 95 06/26/18 07:45 06/26/18 08:08 06/26/18 07:45 06/26/18 07:45 06/26/18 07:45 Intake and Output: 06/26/18 06/26/18 06:59 18:59 Intake Total 270 Output Total 600 475 Balance -330 -475 - Medications Medications: Current Medications Apixaban (Eliquis) 10 mg PO BID [facility] Stop: 07/01/18 18:01 Last Admin: 06/26/18 11:18 Dose: 10 mg Aspirin (Aspirin Chewable) 81 mg PO DAILY [facility] Last Admin: 06/26/18 11:18 Dose: 81 mg Pantoprazole Sodium (Protonix Ec Tab) 20 mg PO DAILY [facility] Last Admin: 06/26/18 11:18 Dose: 20 mg Rosuvastatin Calcium (Crestor) 5 mg PO HS [facility] Last Admin: 06/25/18 21:30 Dose: 5 mg - Labs Labs: 06/26/18 06:20 06/26/18 06:20 PT 15.0 SECONDS (9.7-12.2) H 06/24/18 05:34 INR 1.4 06/24/18 05:34 APTT 51 SECONDS (21-34) H D 06/25/18 06:00 - Constitutional Appears: Well, No Acute Distress - Head Exam Head Exam: ATRAUMATIC, NORMOCEPHALIC - Eye Exam Eye Exam: EOMI, PERRL Pupil Exam: NORMAL ACCOMODATION - ENT Exam ENT Exam: Mucous Membranes Moist - Neck Exam Neck Exam: absent: Lymphadenopathy, Tenderness - Respiratory Exam Respiratory Exam: Decreased Breath Sounds, NORMAL BREATHING PATTERN. absent: Rales, Rhonchi, Wheezes Additional comments: decreased breath sounds in b/l lower lung pak - Cardiovascular Exam Cardiovascular Exam: Tachycardia, +S1, +S2. absent: Gallop, Rubs, Murmur - GI/Abdominal Exam GI & Abdominal Exam: Soft, Tenderness, Normal Bowel Sounds. absent: Distended, Firm - Extremities Exam Extremities Exam: absent: Calf Tenderness, Joint Swelling, Pedal Edema, Tenderness - Back Exam Back Exam: absent: paraspinal tenderness - Neurological Exam Neurological Exam: Alert, Awake, CN II-XII Intact, Oriented x3. absent: Motor Sensory Deficit - Psychiatric Exam Psychiatric exam: Flat Affect - Skin Skin Exam: Normal Color Assessment and Plan - Assessment and Plan (Free Text) Assessment: 32 year old male with no past medical history who presented with 2 weeks of progressively worsening dyspnea found to have widespread multifocal pulmonary emboli and right femoral and politeal DVT. Interventional radiology was consulted and started systemic heparin and alteplase and performed EKOS catheter-directerd thrombolysis for bilateral PE. Patient downgraded to tele, and currently receiving Eliquis PO. Plan: Pulmonary Embolism with DVT treated, s/p thrombolysis and anticoagulation - CT Chest 06/22: multifocal pulmonary embolism, dilated pulmonary artery, right ventricular strain - Doppler b/l LE 06/22: right acute thrombosis of right femoral and politeal veins - Pulmonary artery angiogram 06/23 with IR: placement of b/l ekos cath - Post-cath thrombolysis 06/24 with IR: persistent thrombus in left segmental branch and distal right main pulmonary artery - ECHO: normal ejection fraction and systolic function - received heparin and alteplase drips during ICU stay - tele monitoring - Eliquis 10mg PO BID x 7 days, currently on day 2 of therapy - patient to take Eliquis 5mg PO BID x 6 months thereafter - ASA 81mg PO daily - patient suffered R knee injury prior to admission, possible cause of stasis - patient tachycardic at this time - PT/OT: recommending home with services vs. [facility] at this time - encourage gentle exercise and strengthening with PT Dyslipidemia - TG 256, elevated - Total Cholesterol 213, elevated - LDL 161, eleveated - Crestor 5mg PO HS - encourage patient to adhere to heart healthy diet upon discharge Urinary retention - likely secondary to anesthesia - 1800ml urine output with peres - UCx final: no growth - d/c peres - bladder training - bladder scans TID - bedside commode +JULIO C Screening - hypercoagulable workup remarkable for +JULIO C 1:80 homogenous and speckled patterns - consider underlying vasculitis vs. SLE as potential cause of hypercoagulation PPX GI: Protonix 20mg PO daily DVT: patient on eliquis at this time HHD Patient seen and case reviewed with Dr. Dumas
[2018-06-27 01:10] VITALS: O2SAT 95
--- NOTE | 2018-06-27 07:05 | CP.PCM.PN ---
Subjective - Date & Time of Evaluation Date of Evaluation: 06/27/18 Time of Evaluation: 07:05 Objective - Vital Signs/Intake and Output Vital Signs (last 24 hours): Temp Pulse Resp BP Pulse Ox 100.4 F H 97 H 20 148/81 95 06/26/18 23:20 06/27/18 04:00 06/26/18 23:20 06/26/18 23:20 06/26/18 23:20 Intake and Output: 06/27/18 06/27/18 06:59 18:59 Output Total 500 Balance -500 - Medications Medications: Current Medications Apixaban (Eliquis) 10 mg PO BID [facility] Stop: 07/01/18 18:01 Last Admin: 06/26/18 17:43 Dose: 10 mg Aspirin (Aspirin Chewable) 81 mg PO DAILY [facility] Last Admin: 06/26/18 11:18 Dose: 81 mg Pantoprazole Sodium (Protonix Ec Tab) 20 mg PO DAILY [facility] Last Admin: 06/26/18 11:18 Dose: 20 mg Rosuvastatin Calcium (Crestor) 5 mg PO HS [facility] Last Admin: 06/26/18 21:27 Dose: 5 mg - Labs Labs: 06/26/18 06:20 06/26/18 06:20 PT 15.0 SECONDS (9.7-12.2) H 06/24/18 05:34 INR 1.4 06/24/18 05:34 APTT 51 SECONDS (21-34) H D 06/25/18 06:00
[2018-06-27 07:35] LABS: BASO % 0.4 % (0.0-2.0); EOS # 0.1 K/uL (0.0-0.7); EOS % 0.7 % (0.0-4.0); HEMOGLOBIN 13.1 g/dL (12.0-18.0); LYMPH # 1.5 K/uL (1.0-4.3); LYMPH % 12.7 % (20.0-40.0); MEAN CELL VOLUME 84.8 fL (80.0-94.0); MEAN PLATELET VOLUME 8.9 fL (7.2-11.7); MONO % 8.5 % (0.0-10.0); NEUT # 9.3 K/uL (1.8-7.0); NEUT % 77.7 % (50.0-75.0); RBC 4.69 Mil/uL (4.40-5.90); RED CELL DISTRIBUTION WIDTH 12.4 % (11.5-14.5)
[2018-06-27 07:50] LABS: ALBUMIN 3.7 g/dL (3.5-5.0); ALT/SGPT 26 U/L (21-72); AST/SGOT 29 U/L (17-59); BLOOD UREA NITROGEN 16 mg/dL (9-20); CALCIUM 8.3 mg/dl (8.6-10.4); GFR NON-AFRICAN AMERICAN > 60
[2018-06-27] MEDS: Pantoprazole 20 mg EC Tab PO SCH (09:45)
[2018-06-27 18:13] VITALS: BP 135/74; PULSE 108; TEMP 100.1
--- NOTE | 2018-06-27 21:33 | CP.PCM.DIS ---
Provider - Provider Date of Admission: 06/22/18 16:02 Attending physician: Ross Varner MD Consults: 06/22/18 16:03 Critical Care Consult Stat Comment: Consulting Provider: Amalia Justice Consulting Physician: Amalia Justice Reason for Consult: submassive pe 06/22/18 16:49 Cardiology Consult Routine Comment: Consulting Provider: Mateus Lopez Consulting Physician: Mateus Lopez Reason for Consult: Patient has pulmonary embolism, right heart strain 06/22/18 17:08 Physician Consult Routine Comment: I also spoke with Dr Jonn Davila Consulting Provider: Bony Arredondo Consulting Physician: Bony Arredondo Reason for Consult: Patient has submassive PE, potential for EKOS Time Spent in preparation of Discharge (in minutes): 40 Hospital Course - Lab Results Lab Results: Micro Results 06/26/18 06:16 Nose MRSA Culture - Final MRSA NOT DETECTED 06/25/18 08:03 Urine,Bass Urine Culture - Final No Growth (<1,000 CFU/ML) 06/23/18 18:24 Urine,Catheterized Urine Culture - Final No Growth (<1,000 CFU/ML) 06/22/18 23:29 Nose MRSA Culture (Admit) - Final MRSA NOT DETECTED Most Recent Lab Values WBC 12.0 K/uL (4.8-10.8) H 06/27/18 07:23 RBC 4.69 Mil/uL (4.40-5.90) 06/27/18 07:23 Hgb 13.1 g/dL (12.0-18.0) 06/27/18 07:23 Hct 39.8 % (35.0-51.0) 06/27/18 07:23 MCV 84.8 fL (80.0-94.0) 06/27/18 07:23 MCH 28.0 pg (27.0-31.0) 06/27/18 07:23 MCHC 33.0 g/dL (33.0-37.0) 06/27/18 07:23 RDW 12.4 % (11.5-14.5) 06/27/18 07:23 Plt Count 270 K/uL (130-400) 06/27/18 07:23 MPV 8.9 fL (7.2-11.7) 06/27/18 07:23 Neut % (Auto) 77.7 % (50.0-75.0) H 06/27/18 07:23 Lymph % (Auto) 12.7 % (20.0-40.0) L 06/27/18 07:23 [place] % (Auto) 8.5 % (0.0-10.0) 06/27/18 07:23 Eos % (Auto) 0.7 % (0.0-4.0) 06/27/18 07:23 Baso % (Auto) 0.4 % (0.0-2.0) 06/27/18 07:23 Neut # (Auto) 9.3 K/uL (1.8-7.0) H 06/27/18 07:23 Lymph # (Auto) 1.5 K/uL (1.0-4.3) 06/27/18 07:23 Erie # (Auto) 1.0 K/uL (0.0-0.8) H 06/27/18 07:23 Eos # (Auto) 0.1 K/uL (0.0-0.7) 06/27/18 07:23 Baso # (Auto) 0.0 K/uL (0.0-0.2) 06/27/18 07:23 Neutrophils % (Manual) 80 % (50-75) H 06/26/18 06:20 Lymphocytes % (Manual) 10 % (20-40) L 06/26/18 06:20 Reactive Lymphs % 2 % (0-0) H 06/26/18 06:20 Monocytes % (Manual) 7 % (0-10) 06/26/18 06:20 Eosinophils % (Manual) 1 % (0-4) 06/26/18 06:20 Platelet Estimate Normal (NORMAL) 06/26/18 06:20 Large Platelets Present 06/26/18 06:20 RBC Morphology Normal 06/26/18 06:20 PT 15.0 SECONDS (9.7-12.2) H 06/24/18 05:34 INR 1.4 06/24/18 05:34 APTT 51 SECONDS (21-34) H D 06/25/18 06:00 D-Dimer, Quantitative 3831 ng/mlDDU (0-243) H 06/22/18 14:23 Lupus Anticoagulant see note 02/11/19 07:19 LA PTT Screen 40 sec (<=40) 06/23/18 07:19 dRVVT Mixing Study 28 sec (<=45) 06/23/18 07:19 dRVVT Mix Interpret Not indicated 06/23/18 07:19 Protein C Antigen 96 % (70-140) 06/23/18 07:19 Protein S Antigen 189 % normal (70-140) H 06/23/18 07:19 Antithrombin III Ag 64 % (80-120) L 06/23/18 07:19 Antithrombin III Activ 83 % activity (80-120) 06/23/18 07:19 Sodium 134 mmol/L (132-148) 06/27/18 07:23 Potassium 3.8 mmol/L (3.6-5.2) 06/27/18 07:23 Chloride 97 mmol/L (98-107) L 06/27/18 07:23 Carbon Dioxide 25 mmol/L (22-30) 06/27/18 07:23 Anion Gap 16 (10-20) 06/27/18 07:23 BUN 16 mg/dL (9-20) 06/27/18 07:23 Creatinine 0.8 mg/dL (0.8-1.5) 06/27/18 07:23 Est GFR ( Amer) > 60 06/27/18 07:23 Est GFR (Non-Af Amer) > 60 06/27/18 07:23 POC Glucose (mg/dL) 119 mg/dL (65-110) H 06/24/18 09:32 Random Glucose 113 mg/dL (75-110) H 06/27/18 07:23 Calcium 8.3 mg/dl (8.6-10.4) L 06/27/18 07:23 Phosphorus 4.3 mg/dL (2.5-4.5) 06/27/18 07:23 Magnesium 2.2 mg/dL (1.6-2.3) 06/27/18 07:23 Total Bilirubin 0.7 mg/dL (0.2-1.3) 06/27/18 07:23 AST 29 U/L (17-59) 06/27/18 07:23 ALT 26 U/L (21-72) 06/27/18 07:23 Alkaline Phosphatase 106 U/L (38-126) 06/27/18 07:23 Total Creatine Kinase 48 U/L (55-170) L 06/23/18 04:33 CK-MB (Mass) 1.23 ng/mL (0.0-3.38) 06/23/18 04:33 Troponin I 0.1830 ng/mL (0.00-0.120) H* 06/23/18 04:33 NT-Pro-B Natriuret Pep 4230 pg/mL (0-450) H 06/22/18 14:23 Total Protein 7.2 g/dL (6.3-8.3) 06/27/18 07:23 Albumin 3.7 g/dL (3.5-5.0) 06/27/18 07:23 Globulin 3.5 gm/dL (2.2-3.9) 06/27/18 07:23 Albumin/Globulin Ratio 1.0 (1.0-2.1) 06/27/18 07:23 Triglycerides 256 mg/dL (0-149) H 06/23/18 04:33 Cholesterol 213 mg/dL (0-199) H 06/23/18 04:33 LDL Cholesterol Direct 161 mg/dL (0-129) H 06/23/18 04:33 HDL Cholesterol 31 mg/dL (30-70) 06/23/18 04:33 TSH 3rd Generation 0.51 mIU/L (0.46-4.68) 06/23/18 04:33 Urine Color Yellow (YELLOW) 06/23/18 18:24 Urine Clarity Clear (Clear) 06/23/18 18:24 Urine pH 6.0 (5.0-8.0) 06/23/18 18:24 Ur Specific Filer 1.025 (1.003-1.030) 06/23/18 18:24 Urine Protein Trace mg/dL (NEGATIVE) 06/23/18 18:24 Urine Glucose (UA) Negative mg/dL (Normal) 06/23/18 18:24 Urine Ketones Negative mg/dL (NEGATIVE) 06/23/18 18:24 Urine Blood Small (NEGATIVE) 06/23/18 18:24 Urine Nitrate Negative (NEGATIVE) 06/23/18 18:24 Urine Bilirubin Small (NEGATIVE) 06/23/18 18:24 Urine Urobilinogen 0.2 mg/dL (0.2-1.0) 06/23/18 18:24 Ur Leukocyte Esterase Negative Rylie/uL (Negative) 06/23/18 18:24 Urine WBC (Auto) 1 /hpf (0-5) 06/23/18 18:24 Urine RBC (Auto) 34 /hpf (0-3) H 06/23/18 18:24 Urine Opiates Screen Negative (NEGATIVE) 06/23/18 05:46 Urine Methadone Screen Negative (NEGATIVE) 06/23/18 05:46 Ur Barbiturates Screen Negative (NEGATIVE) 06/23/18 05:46 Ur Phencyclidine Scrn Negative (NEGATIVE) 06/23/18 05:46 Ur Amphetamines Screen Negative (NEGATIVE) 06/23/18 05:46 U Benzodiazepines Scrn Negative (NEGATIVE) 06/23/18 05:46 U Oth Cocaine Metabols Negative (NEGATIVE) 06/23/18 05:46 U Cannabinoids Screen Negative (NEGATIVE) 06/23/18 05:46 JULIO C Screen Positive (Negative) H 06/23/18 07:19 JULIO C Titer 1:80 Titer (<1:40) H 06/23/18 07:19 JULIO C Titer 2 1:80 Titer (<1:40) H 06/23/18 07:19 JULIO C Pattern Homogeneous H 06/23/18 07:19 JULIO C Pattern 2 Speckled H 06/23/18 07:19 Pcxf-1-Runyllxiuich Ab <9 FERNIE (<=20) 06/23/18 07:19 Beta-2 GPI IgG Ab <9 SGU (<=20) 06/23/18 07:19 Beta-2 GPI IgM Ab <9 SMU (<=20) 06/23/18 07:19 Phosphatidylserine IgG <10 U/mL (<10) 06/23/18 07:19 Phosphatidylserine IgA <20 U/mL (<20) 06/23/18 07:19 Phosphatidylserine IgM <25 U/mL (<25) 06/23/18 07:19 Anti-Phospholipid Intrp see note 06/23/18 07:19 Anti-Cardiolipin IgG Ab <14 GPL (<=14) 06/23/18 07:19 Anti-Cardiolipin IgA Ab <11 APL (<=11) 06/23/18 07:19 Anti-Cardiolipin IgM Ab <12 MPL (<=12) 06/23/18 07:19 HIV 1&2 Antibody Screen Negative (NEGATIVE) 06/23/18 04:33 - Hospital Course Hospital Course: On admission: This is a 32 year old male who reports having two weeks of progressively worsening shortness of breath, chest pain, and palpitations. He reports that he had been tolerating this until about 2 days ago when it became considerably worse and now could no longer bear it any longer and came into the hospital. To make a long story short he had a CTA showing extensive multifocal pulmonary embolism in both left and right in every lobe. The right upper lobe arteries appear severely affected. The CTA also reported that the right ventricle appears very dilated and suspicious for right ventricular strain. There are borderline elevated troponins and the 12 lead shows sinus tachycardia in the 130s with On vital signs he was sinus tachycardia in the 120s to 130. BP was in the 130s Patient denied any recent travel, denied surgeries to the lower extremity, denied smoking, he walks alot and is not sedentary he says He also denies any family history of blood clotting disorders + He reported he thinks he injured his right knee about 1 month ago but did not have pain for more than one day, denied leg sweling + Headache off and on Denies abominal pain, denies bowel movment problems, denies urinary problems Hospital course: Patient was admitted for multifocal pulmonary emboli and right femoral and popliteal DVT, with recent right knee injury. Patient received Heparin and Alteplase drips during ICU stay. IR was consulted who placed bilateral ekos catheter and post catheter thrombolysis revealed improved flow to lungs bilaterally, with persistent thrombus in left segmental branch and distal right main pulmonary artery. Patient was then switched to Eliquis 10mg twice daily, received 3/7 days in the hospital with plan to then take Eliquis 5mg twice daily for 6 months total. Patient was found to have elevated lipid levels and treated with Crestor. Patient experienced urinary retention during hospitalization, which resolved. Of note, patient was found to have positive JULIO C screening with 1:80 homogeneous and speckled patterns, which requires further outpatient followup with Rheumatology. Imaging: - CT Chest 06/22: multifocal pulmonary embolism, dilated pulmonary artery, right ventricular strain - Doppler b/l LE 06/22: right acute thrombosis of right femoral and politeal veins - Pulmonary artery angiogram 06/23 with IR: placement of b/l ekos cath - Post-cath thrombolysis 06/24 with IR: persistent thrombus in left segmental branch and distal right main pulmonary artery - ECHO: normal ejection fraction and systolic function Discharge instructions: Please follow up with [facility] at [address] [address] by calling [phone]. Please take 4 more days starting tomorrow of Eliquis 10mg twice a day, then take Eliquis 5mg twice a day. You will need to take Eliquis 5mg twice a day for the next 6 months. We are giving you a one month supply of the Eliquis. You can get refills by following up at the Clinic in [place]. You may follow up with the clinic as well to get an outpatient ultrasound of your right lower leg since you have a clot there. Follow up with Rheumatology by getting a referral from the [place] clinic as well. Please take your medications since it is important that you don't get any more clots. Please do not smoke since it increases your risk for blood clots. Prescriptions: Eliquis 10mg by mouth twice daily for 4 more days Eliquis 5mg by mouth twice daily for 30 days Crestor 5mg by mouth once daily for 30 days. Discharge Exam - Head Exam Head Exam: ATRAUMATIC, NORMOCEPHALIC - Eye Exam Eye Exam: EOMI, PERRL - ENT Exam ENT Exam: Mucous Membranes Moist - Neck Exam Neck exam: Full Rom - Respiratory Exam Respiratory Exam: Clear to PA & Lateral, NORMAL BREATHING PATTERN - Cardiovascular Exam Cardiovascular Exam: REGULAR RHYTHM, +S1, +S2 - GI/Abdominal Exam GI & Abdominal Exam: Normal Bowel Sounds, Soft - Extremities Exam Extremities exam: pedal pulses present Additional comments: Right lower extremity increased edema compared to left lower extremity - Neurological Exam Neurological exam: Alert, CN II-XII Intact, Oriented x3 - Psychiatric Exam Psychiatric exam: Normal Affect, Normal Mood Discharge Plan - Discharge Medications Prescriptions: Rosuvastatin Calcium [Crestor] 5 mg PO HS #30 tab - Follow Up Plan Condition: CRITICAL Disposition: HOME/ ROUTINE Instructions: Angiography, Heart Healthy Diet, Pulmonary Embolism (Blood Clot in the Lungs) (DC), Apixaban, Rosuvastatin, Going Home on Blood Thinners Additional Instructions: Please follow up with [facility] at [place] at [address] [address] by calling [phone]. Please take 4 more days starting tomorrow of Eliquis 10mg twice a day, then take Eliquis 5mg twice a day. You will need to take Eliquis 5mg twice a day for the next 6 months. We are giving you a one month supply of the Eliquis. You can get refills by following up at the Clinic in [place]. You may follow up with the clinic as well to get an outpatient ultrasound of your right lower leg since you have a clot there. Follow up with Rheumatology by getting a referral from the [place] clinic as well. Please take your medications since it is important that you don't get any more clots. Please do not smoke since it increases your risk for blood clots. Prescriptions: Eliquis 10mg by mouth twice daily for 4 more days Eliquis 5mg by mouth twice daily for 30 days Crestor 5mg by mouth once daily for 30 days. Referrals: Johann Sexton, [[facility]] -
== END 2018-06-27 19:38 | disposition home or self-care (01) | DRG 134 ==
LOC: C.ER 12:56 → C.9E 16:02 → C.9I 16:40 → C.6T 06-26 04:05
PROVIDERS: ADMIT Internal Medicine; ATTEND Internal Medicine
PROC: 3E05317 Introduction of Other Thrombolytic into Peripheral Artery, Percutaneous Approach (ICD-10-PCS; principal; 2018-06-23)
PROC: B30TZZZ Plain Radiography of Left Pulmonary Artery (ICD-10-PCS; 2018-06-24)
PROC: B30SZZZ Plain Radiography of Right Pulmonary Artery (ICD-10-PCS; 2018-06-24)
DX: I26.99 Other pulmonary embolism without acute cor pulmonale (principal); J90 Pleural effusion, not elsewhere classified; D68.59 Other primary thrombophilia; I82.411 Acute embolism and thrombosis of right femoral vein; I82.431 Acute embolism and thrombosis of right popliteal vein; E78.5 Hyperlipidemia, unspecified; J98.11 Atelectasis; Z74.01 Bed confinement status